=== PATIENT | male | born 1955 | race Caucasian/White ===

== ENCOUNTER 2021-06-07 14:55 | Day surgery (SDC) | payer MEDICARE, OTHER ==
[~2021-06-07] VITALS: Ht 190.5 cm; Wt 91.5 kg
[~2021-06-07 14:55] MED LIST: OMNIPAQUE 350 MG/ML, 50 ML BOTTLE ONE
[2021-06-07] MEDS ORDERED: CHLORHEXIDINE 15 ML UDC ONE (15:14)
[2021-06-07] MEDS ORDERED: [UNRECOGNIZED DRUG - OTHER] PO (15:24)
[2021-06-07] MEDS ORDERED: [UNRECOGNIZED DRUG - OTHER] (15:24)
[2021-06-07] MEDS ORDERED: BUDE10.22 PO (15:31)
[2021-06-07 15:45] VITALS: BP 131/87
[2021-06-07 15:45] LABS: BASOPHILS % (AUTO) 1 % (0-1); EOSINOPHILS % (AUTO) 1 % (1-7); LYMPHOCYTES % (AUTO) 23 % (22-44); MEAN CORPUSCULAR HEMOGLOBIN 33.3 pg (27.5-34.5); MEAN CORPUSCULAR HGB CONC 34.5 g/dL (33.2-36.2); MEAN PLATELET VOLUME 6.9 fL (7.4-10.4); MONOCYTES % (AUTO) 7 % (2-9); NEUTROPHILS % (AUTO) 68 % (42-75); PLATELET COUNT 248 x10^3/uL (130-400); RED BLOOD COUNT 4.54 x10^6/uL (4.38-5.82); RED CELL DISTRIBUTION WIDTH 13.2 % (9.4-14.8)
[2021-06-07 15:57] LABS: ALANINE AMINOTRANSFERASE 35 U/L (12-78); ANION GAP 9 mmol/L (5-15); CALCIUM 9.7 mg/dL (8.5-10.1); CHLORIDE 109 mmol/L (98-107); CREATININE 1.09 mg/dL (0.7-1.3)
[2021-06-07 15:59] LABS: ALKALINE PHOSPHATASE 111 U/L (45-117); BILIRUBIN,TOTAL 0.9 mg/dL (0.2-1.0)
[2021-06-07] MEDS ORDERED: CHLORHEXIDINE 15 ML UDC PO ONE (16:00)
[2021-06-07] MEDS ORDERED: LACTATED RINGERS 1,000 ML IV SCH (16:00)
[2021-06-07 16:14] LABS: INTERNATIONAL NORMALIZED RATIO 1.02 (0.93-1.1); PROTHROMBIN TIME 10.9 Seconds (9.6-11.5)
[2021-06-07 16:15] LABS: MICROSCOPIC AUTO
[2021-06-07] MEDS ORDERED: MIDAZOLAM 1 MG/ML, 2ML ONE (16:26)
[2021-06-07] MEDS ORDERED: FENTANYL PF 250 MCG/5ML ONE (16:26)
[2021-06-07] MEDS ORDERED: PROPOFOL 10 MG/ML, 20ML ONE (16:27)
[2021-06-07] MEDS ORDERED: CEFAZOLIN 1,000 MG ONE ×2 (16:47)
[2021-06-07] MEDS ORDERED: DEXAMETHASONE 4 MG/ML, 1ML ONE ×2 (16:47→16:50)
[2021-06-07] MEDS ORDERED: EPHEDRINE 50 MG/ML, 1ML ONE (16:54)
[2021-06-07] MEDS ORDERED: LABETALOL 5MG/ML, 20ML IV PRN (17:00)
[2021-06-07] MEDS ORDERED: ONDANSETRON 2MG/ML, 2ML IVPush PRN (17:00)
[2021-06-07] MEDS ORDERED: FENTANYL PF 100 MCG/2ML IV PRN (17:00)
[2021-06-07] MEDS ORDERED: hydrALAzine 20 MG/ML, 1ML IV PRN (17:00)
[2021-06-07] MEDS ORDERED: ACETAMINOPHEN 325 MG TABLET PO PRN (17:00)
[2021-06-07] MEDS ORDERED: OXYcodone 5 MG/5 ML ORAL.SOL UDC PO PRN (17:00)
[2021-06-07] MEDS ORDERED: MEPERIDINE/PF 25MG/0.5ML IVPush PRN (17:00)
[2021-06-07] MEDS ORDERED: HYDROmorphone 1 MG/ML, 1ML INJ IVPush PRN (17:00)
[2021-06-07] MEDS ORDERED: PROMETHAZINE 25 MG/ML, 1ML IVPush PRN (17:00)
[2021-06-07] MEDS ORDERED: KETOROLAC 30 MG/1 ML ONE (17:10)
[2021-06-07] MEDS ORDERED: ONDANSETRON 2MG/ML, 2ML ONE (17:27)
== END 2021-06-07 18:55 | disposition home or self-care (01) ==
LOC: OUT 14:55
PROVIDERS: ATTEND Urology
DX: N20.1 Calculus of ureter (principal); N40.0 Benign prostatic hyperplasia without lower urinary tract symptoms; J45.909 Unspecified asthma, uncomplicated; Z79.01 Long term (current) use of anticoagulants; Z79.891 Long term (current) use of opiate analgesic; Z79.899 Other long term (current) drug therapy; Z86.718 Personal history of other venous thrombosis and embolism; Z87.442 Personal history of urinary calculi; Z88.8 Allergy status to other drugs, medicaments and biological substances; Z80.52 Family history of malignant neoplasm of bladder
CPT/HCPCS: 36415; 52353; 74018; 80053; 81001; 85025; 85610; 87086; 93005; C1769; J0690; J1100; J1885; J2250; J2405; J2704; J3010; J7120; 76000; Q9967